=== PATIENT | male | born 1995 | race American Indian/Alaskan Native ===

== ENCOUNTER 2016-10-29 09:36 | Outpatient (CLI) | payer MEDICAID ==
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
== END 2016-10-29 09:37 | disposition home or self-care (01) ==
LOC: MRI 09:36
PROVIDERS: ATTEND Psychiatry & Neurology Neurology
DX: G40.309 Generalized idiopathic epilepsy and epileptic syndromes, not intractable, without status epilepticus (principal); G93.0 Cerebral cysts; G93.89 Other specified disorders of brain
CPT/HCPCS: 70551